=== PATIENT | female | born 1960 | race Caucasian/White ===

== ENCOUNTER 2016-02-28 09:32 | Emergency (ER) | payer BC ==
[2016-02-28 09:45] VITALS: BP 144/71
[2016-02-28] MEDS ORDERED: Albuterol/Ipratropium NEB.SOL* Albuterol 2.5 MG/Ipratropium 0.5 MG 3 ML INH ONE (09:55)
--- NOTE | 2016-02-28 10:27 | UC ---
Respiratory Complaint HPI - HPI Summary HPI Summary: 2 courses of antibiotics from 12/19/15 till now, has had progressive and worsening cough, unsure about fevers, nose and chest congestion, can here wheezing when she exhales - History of Current Complaint Chief Complaint: UCRespiratory Stated Complaint: COUGH Time Seen by Provider: 02/28/16 09:46 Hx Obtained From: Patient Hx Last Menstrual Period: cant remember, perhaps a couple months ago, "premenopause" ?: No Onset/Duration: Gradual Onset, Lasting Weeks, Still Present, Worse Since - getting worse every day---has only been ok when she was on prednisone Timing: Constant Severity Initially: Mild Severity Currently: Moderate Character: Cough: Productive Aggravating Factors: Exertion, Deep Breaths, Recumbent Position Alleviating Factors: Nothing - only when she was on prednisone she was feeling better Associated Signs And Symptoms: Positive: Chills, Pleuritic Chest Pain, Wheezing , URI, Nasal Congestion - Allergies/Home Medications Allergies/Adverse Reactions: Allergies Allergy/AdvReac Type Severity Reaction Status Date / Time No Known Allergies Allergy Verified 01/24/16 10:02 PMH/Surg Hx/FS Hx/Imm Hx Previously Healthy: No Endocrine History Of: Denies: Diabetes, Thyroid Disease Cardiovascular History Of: Reports: Hypertension Denies: Cardiac Disorders Respiratory History Of: Denies: COPD, Asthma GI/ History Of: Denies: Ulcer - Surgical History Surgical History: None - Family History Known Family History: Positive: Hypertension, Other - cancer - Social History 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 Lives: With Family Alcohol Use: None Substance Use Type: None Smoking Status (MU): Never Smoked Tobacco Have You Smoked in the Last Year: No - Immunization History Most Recent Influenza Vaccination: no Review of Systems Constitutional: Chills, Fatigue Skin: Negative Eyes: Negative ENT: Nasal Discharge Respiratory: Cough Cardiovascular: Negative Gastrointestinal: Negative Genitourinary: Negative Motor: Negative Neurovascular: Negative Musculoskeletal: Negative Neurological: Negative Psychological: Negative All Other Systems Reviewed And Are Negative: Yes Physical Exam Triage Information Reviewed: Yes Appearance: No Pain Distress, Ill-Appearing - mild, Obese Vital Signs: Initial Vital Signs Temp 98.8 F 02/28/16 09:39 Pulse 92 02/28/16 09:39 Resp 16 02/28/16 09:39 BP 144/71 02/28/16 09:39 Pulse Ox 98 01/08/17 09:39 Vital Signs Reviewed: Yes Eye Exam: Normal Eyes: Positive: Conjunctiva Clear ENT Exam: Normal ENT: Positive: Normal ENT inspection, Hearing grossly normal, Pharynx normal, Nasal congestion, Nasal drainage, TMs normal. Negative: Tonsillar swelling, Tonsillar exudate, Trismus, Muffled/hoarse voice Dental Exam: Normal Neck exam: Normal Neck: Positive: Supple, Nontender, No Lymphadenopathy Respiratory Exam: Normal Respiratory: Positive: Chest non-tender, No respiratory distress, No accessory muscle use, Wheezing, Expiration Cardiovascular Exam: Normal Cardiovascular: Positive: RRR, No Murmur, Pulses Normal, Brisk Capillary Refill Musculoskeletal Exam: Normal Musculoskeletal: Positive: Strength Intact, ROM Intact, No Edema Neurological Exam: Normal Neurological: Positive: Alert, Muscle Tone Normal Psychological Exam: Normal Skin Exam: Normal UC Diagnostic Evaluation - Laboratory O2 Sat by Pulse Oximetry: 98 Re-Evaluation - Re-Evaluation First Eval Change: Improved - after neb was able to cough up a large amount of thick yellow secretion, chest CTA and feels better Respiratory Course/Dx - Course Course Of Treatment: prednisone, albuterol neb, flonase, zithromax - Differential Dx/Diagnosis Differential Diagnosis/HQI/PQRI: Bronchitis, Laryngitis, Lower Resp Infection, Sinusitis, Tuberculosis Provider Diagnoses: Bronchitis , sinusitis, bronchospasm Discharge - Discharge Plan Condition: Stable Disposition: HOME Prescriptions: Albuterol 2.5MG/3ML (0.083%)* [Ventolin 2.5 MG/3 ML NEB.BELEN*] 2.5 mg INH Q6H PRN #1 box PRN Reason: cough/wheeze Azithromycin TAB* [Zithromax TAB (Z-ROXANNA)*] 0 mg PO .Z-ROXANNA INSTRUCTIONS #6 tab Fluticasone NASAL SPRAY 50MCG* [Flonase NASAL SPRAY 50MCG*] 2 spray BOTH NARES DAILY #1 btl predniSONE TAB* [Deltasone TAB*] 10 mg PO DAILY #20 tab Patient Education Materials: How to Use a Metered-Dose Inhaler (ED), Acute Bronchitis (ED), How to Use a Nebulizer (ED), Bronchospasm (ED), How to Use Nasal Brookesmith (ED) Referrals: Debby Chau NP [Primary Care Provider] - If Needed
== END 2016-02-28 10:42 | disposition home or self-care (01) ==
LOC: UCEAST 09:32
DX: J40 Bronchitis, not specified as acute or chronic (principal); J01.90 Acute sinusitis, unspecified
CPT/HCPCS: 99212; A9270-GY; G0463

== ENCOUNTER 2016-03-13 07:14 | Emergency (ER) | payer BC ==
[2016-03-13 07:26] VITALS: BP 151/78
--- NOTE | 2016-03-13 07:49 | UC ---
Respiratory Complaint HPI - HPI Summary HPI Summary: RLL PNA DIAGNOSED 12/18 IN ER - TREATED WITH LEVAQUIN. A MONTH LATER SX RETURNED - SEEN BY PCP AND TREATED WITH AMOXICILLIN. HAS ALSO RECEIVED INHALERS , COUGH MEDICINE AND STEROIDS FOR RESPIRATORY SX IN PAST 2 MONTHS SINCE INITIAL DIAGNOSIS. LAST VISIT HERE WAS 02/28/16 AND PT WAS DX WITH BRONCHITIS/SINUSITIS AND TX WITH AZITH. SHE JUST STARTED TAKING THIS YESTERDAY. PT REPORTS OVER THE PAST 2 DAYS HER RIGHT EAR HAS BECOME PLUGGED AND HER HEARING IS MUFFLED. SHE ALSO STATES THE COUGH HAS BEEN PERSISTENT AND IS NO BETTER. IS WONDERING ABOUT A PULMONOLOGY EVALUATION. DENIES FEVER, N/V/D. NO ST OR RECENT WHEEZE. 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 - Hx Last Menstrual Period: cant remember, perhaps a couple months ago, "premenopause" Onset/Duration: Gradual Onset, Lasting Weeks, Still Present Timing: Constant Severity Initially: Moderate Severity Currently: Moderate Pain Intensity: 0 Pain Scale Used: 0-10 Numeric Character: Cough: Productive Aggravating Factors: Nothing Alleviating Factors: Nothing - Allergies/Home Medications Allergies/Adverse Reactions: Allergies Allergy/AdvReac Type Severity Reaction Status Date / Time No Known Allergies Allergy Verified 03/13/16 07:15 PMH/Surg Hx/FS Hx/Imm Hx Endocrine History Of: Denies: Diabetes, Thyroid Disease Cardiovascular History Of: Reports: Hypertension Denies: Cardiac Disorders Respiratory History Of: Reports: Asthma Denies: COPD GI/ History Of: Denies: Ulcer - Surgical History Surgical History: None - Family History Known Family History: Positive: Hypertension, Other - cancer - Social History Alcohol Use: None Substance Use Type: None Smoking Status (MU): Never Smoked Tobacco Have You Smoked in the Last Year: No - Immunization History Most Recent Influenza Vaccination: no Review of Systems ENT: Ear Ache Respiratory: Cough Cardiovascular: Negative Gastrointestinal: Negative All Other Systems Reviewed And Are Negative: Yes Physical Exam Triage Information Reviewed: Yes Appearance: Well-Appearing, No Pain Distress, Well-Nourished Vital Signs: Initial Vital Signs Temp 98.7 F 03/13/16 07:14 Pulse 90 03/13/16 07:14 Resp 16 03/13/16 07:14 BP 151/78 03/13/16 07:14 Pulse Ox 95 03/13/16 07:14 Vital Signs Reviewed: Yes Eyes: Positive: Conjunctiva Clear ENT: Positive: Hearing grossly normal, Pharynx normal, TMs normal Neck: Positive: Supple, Nontender, No Lymphadenopathy Respiratory Exam: Normal Cardiovascular Exam: Normal Abdomen Description: Positive: Soft Musculoskeletal: Positive: No Edema Neurological: Positive: Alert Psychological: Positive: Age Appropriate Behavior Skin: Negative: rashes UC Diagnostic Evaluation - Laboratory O2 Sat by Pulse Oximetry: 95 Respiratory Course/Dx - Course Course Of Treatment: ADVISED TO CONTINUE AZITH TO COMPLETE COURSE. PT DECLINES FURTHER TREATMENT WITH STEROIDS. HAS INHALERS AT HOME. PT ASKED ABOUT SINGULAIR. I ADVISED THAT THIS WOULD BE BETTER PRESCRIBED BY HER PCP OR A FINGERPRINT EXPERT IT IS MEDICATION TO BE TAKEN CHRONICALLY AND WOULD NEED FOLLOW- UP AFTER INITIATING. - Differential Dx/Diagnosis Provider Diagnoses: 1. EUSTACHIAN TUBE DYSFUNCTION. 2. CHRONIC COUGH Discharge - Discharge Plan Condition: Stable Disposition: HOME Patient Education Materials: Chronic Cough (ED), Eustachian Tube Dysfunction ( GEN) Referrals: Debby Chau NP [Primary Care Provider] - If Needed Additional Instructions: CONTINUE THE AZITHROMYCIN TO COMPLETE COURSE. USE YOUR INHALERS NEEDED. GO AHEAD AND CALL PULMONOLOGY AT [facility] TOMORROW MORNING FOR AN APPT TO BE SEEN. GO TO THE ER WITHOUT FAIL IF YOU DEVELOP CHEST PAIN, SHORTNESS OF BREATH OF ANY OTHER CONCERNING SYMPTOMS.
== END 2016-03-13 08:02 | disposition home or self-care (01) ==
LOC: UCEAST 07:14
DX: H69.91 Unspecified Eustachian tube disorder, right ear (principal); R05 Cough
CPT/HCPCS: 99211; G0463

== ENCOUNTER 2016-07-17 21:20 | Emergency (ER) | payer BC ==
[2016-07-17] MEDS ORDERED: Ciprofloxacin 0.3% OPTH.SOL* 2.5 ML BTL LEFT EYE ONE (22:52)
--- NOTE | 2016-07-17 22:52 | UC ---
Respiratory Complaint HPI - HPI Summary HPI Summary: 1 WEEK OF COUGH. NO FEVER, ST, EAR PAIN, N/V/D OR CONGESTION. LEFT EYE STARTED TO GET RED TODAY. NO VISUAL DISTURBANCES. - History of Current Complaint Chief Complaint: UCRespiratory Stated Complaint: COUGH Time Seen by Provider: 07/17/16 22:43 Hx Obtained From: Patient Hx Last Menstrual Period: cant remember, perhaps a couple months ago, "premenopause" Onset/Duration: Gradual Onset, Lasting Days, Still Present Timing: Constant Severity Initially: Moderate Severity Currently: Moderate Pain Intensity: 0 Pain Scale Used: 0-10 Numeric Character: Cough: Nonproductive Aggravating Factors: Nothing Alleviating Factors: Nothing Associated Signs And Symptoms: Positive: URI - Allergies/Home Medications Allergies/Adverse Reactions: Allergies Allergy/AdvReac Type Severity Reaction Status Date / Time Cinnamon Allergy Severe Rash Verified 07/17/16 21:51 MINT Allergy Severe Rash Uncoded 07/17/16 21:51 PMH/Surg Hx/FS Hx/Imm Hx Endocrine History Of: Denies: Diabetes, Thyroid Disease Cardiovascular History Of: Reports: Hypertension Denies: Cardiac Disorders Respiratory History Of: Reports: Asthma Denies: COPD GI/ History Of: Denies: Ulcer - Surgical History Surgical History: None - Family History Known Family History: Positive: Hypertension, Other - cancer - Social History Alcohol Use: None Substance Use Type: None Smoking Status (MU): Never Smoked Tobacco Have You Smoked in the Last Year: No - Immunization History Most Recent Influenza Vaccination: no Review of Systems Constitutional: Negative Eyes: Eye Redness ENT: Negative Respiratory: Cough Cardiovascular: Negative Gastrointestinal: Negative All Other Systems Reviewed And Are Negative: Yes Physical Exam Triage Information Reviewed: Yes Appearance: Well-Appearing, No Pain Distress, Well-Nourished Vital Signs: Initial Vital Signs Temp 96.6 F 07/17/16 21:44 Pulse 79 07/17/16 21:44 Resp 18 07/17/16 21:44 BP 148/88 07/17/16 21:44 Pulse Ox 96 07/17/16 21:44 Vital Signs Reviewed: Yes Eyes: Positive: Conjunctiva Inflamed - LEFT. Negative: Discharge ENT: Positive: Hearing grossly normal, Pharynx normal, TMs normal Neck: Positive: Supple, Nontender, No Lymphadenopathy Respiratory Exam: Normal Cardiovascular Exam: Normal Abdomen Description: Positive: Soft Musculoskeletal: Positive: No Edema Neurological: Positive: Alert Psychological: Positive: Age Appropriate Behavior Skin: Negative: rashes UC Diagnostic Evaluation - Laboratory O2 Sat by Pulse Oximetry: 96 Respiratory Course/Dx - Differential Dx/Diagnosis Provider Diagnoses: 1. ACUTE URI. 2. LEFT EYE CONJUNCTIVITIS Discharge - Discharge Plan Condition: Stable Disposition: HOME Patient Education Materials: Upper Respiratory Infection (ED), Conjunctivitis ( ED) Referrals: Debby Chau NP [Primary Care Provider] - If Needed Additional Instructions: ACUTE UPPER RESPIRATORY INFECTION The common cold is a benign self-limited syndrome representing a group of diseases caused by members of several families of viruses. It is the most frequent acute illness in the [place] and throughout the industrialized world. The term "common cold" refers to a mild upper respiratory viral infection involving, to variable degrees, nasal congestion and discharge ( rhinorrhea), sneezing, sore throat, cough, low-grade fever, headache, and malaise. Symptomatic therapy remains the mainstay of common cold treatment. In the absence of convincing evidence of a secondary bacterial infection, antibiotics are not effective in the treatment of the common cold and should not be prescribed. Be advised that the usual course and duration of illness is up to one and a half weeks for patients with a cold, but can last slightly longer; symptoms usually persist longer in smokers. CIPRO EYE DROPS DISPENSED FOR PINK EYE. USE UNTIL SYMPTOMS ARE RESOLVED AND THEN FOR AN EXTRA 2 DAYS AFTER THAT.
[2016-07-18 10:01] VITALS: BP 148/88
== END 2016-07-17 23:10 | disposition home or self-care (01) ==
LOC: UCEAST 21:20
DX: J06.9 Acute upper respiratory infection, unspecified (principal); H10.32 Unspecified acute conjunctivitis, left eye; I10 Essential (primary) hypertension; J45.909 Unspecified asthma, uncomplicated
CPT/HCPCS: 99212; A9270-GY; G0463

== ENCOUNTER 2017-12-17 07:02 | Emergency (ER) | payer BC ==
[2017-12-17 07:15] VITALS: BP 141/75
--- NOTE | 2017-12-17 07:31 | UC ---
Respiratory Complaint HPI - HPI Summary HPI Summary: 57yo female with PMH of asthma and HTN c/o sore throat, cough and yellow sputum for 1 week - History of Current Complaint Chief Complaint: UCRespiratory Stated Complaint: COUGH SORE THROAT CONGESTED Time Seen by Provider: 12/17/17 07:11 Hx Obtained From: Patient Hx Last Menstrual Period: cant remember, perhaps a couple months ago, "premenopause" ?: No Onset/Duration: Gradual Onset, Lasting Weeks Severity Initially: Mild Severity Currently: Mild Pain Intensity: 2 Character: Cough: Productive Aggravating Factors: Exertion Alleviating Factors: Bronchodilator Associated Signs And Symptoms: Positive: Fever - Risk Factors Pulmonary Embolism Risk Factors: Negative Cardiac Risk Factors: Negative Pseudomonas Risk Factors: Negative Tuberculosis Risk Factors: Negative - Allergies/Home Medications Allergies/Adverse Reactions: Allergies Allergy/AdvReac Type Severity Reaction Status Date / Time cinnamon Allergy Rash Verified 12/17/17 07:16 MINT Allergy Severe Rash Uncoded 12/17/17 07:16 PMH/Surg Hx/FS Hx/Imm Hx Cardiovascular History: Hypertension Respiratory History: Asthma - Surgical History Surgical History: None - Family History Known Family History: Positive: Hypertension, Other - cancer - Social History Alcohol Use: Rare Substance Use Type: None Smoking Status (MU): Never Smoked Tobacco Have You Smoked in the Last Year: No - Immunization History Most Recent Influenza Vaccination: no Review of Systems Constitutional: Fever Respiratory: Cough All Other Systems Reviewed And Are Negative: Yes Physical Exam - Summary Physical Exam Summary: ronci b/l , no wheezing, pharynx wnl, no erythema or exudates, no cervical LNE Triage Information Reviewed: Yes Appearance: Well-Appearing, No Pain Distress, Obese Vital Signs: Initial Vital Signs Temp 98.3 F 12/17/17 07:10 Pulse 100 12/17/17 07:10 Resp 16 12/17/17 07:10 BP 141/75 12/17/17 07:10 Pulse Ox 95 12/17/17 07:10 Vital Signs Reviewed: Yes Eyes: Positive: Conjunctiva Clear ENT: Positive: Normal ENT inspection, Hearing grossly normal, Pharynx normal, TMs normal Neck: Positive: Supple, Nontender, No Lymphadenopathy Respiratory: Positive: Rhonchi Cardiovascular: Positive: RRR, No Murmur, Pulses Normal Abdomen Description: Positive: Nontender Bowel Sounds: Positive: Present Musculoskeletal: Positive: Strength Intact, ROM Intact, No Edema UC Diagnostic Evaluation - Laboratory O2 Sat by Pulse Oximetry: 95 Respiratory Course/Dx - Course Course Of Treatment: patient with cough for 7 days, feels she is a little better than at beginning of her illness, instructed to rest, tylenol as needed, standby amoxil as prescribed if symptoms worsen. - Differential Dx/Diagnosis Provider Diagnoses: acute bronchitis Discharge - Sign-Out/Discharge Documenting (check all that apply): Patient Departure All imaging exams completed and their final reports reviewed: No Studies - Discharge Plan Condition: Stable Disposition: HOME Patient Education Materials: Viral Syndrome (ED), Acute Bronchitis (ED) Referrals: Debby Chau NP [Primary Care Provider] - - Billing Disposition and Condition Condition: STABLE Disposition: Home
== END 2017-12-17 07:42 | disposition home or self-care (01) ==
LOC: UCEAST 07:02
DX: J20.9 Acute bronchitis, unspecified (principal); J02.9 Acute pharyngitis, unspecified; I10 Essential (primary) hypertension; J45.909 Unspecified asthma, uncomplicated; Z91.018 Allergy to other foods
CPT/HCPCS: 99212; G0463

== ENCOUNTER 2018-06-30 07:01 | Emergency (ER) | payer BC ==
[2018-06-30 07:14] VITALS: BP 128/68
--- NOTE | 2018-06-30 07:15 | UC ---
Respiratory Complaint HPI - HPI Summary HPI Summary: CHIEF COMPLAINT and HPI: This is a 58 y/o healthy female with cough, congestion , no fever . This condition began 5 days ago. Since then continued at same level. No chest pain or SOB. VITAL SIGNS & SaO2 REVIEWED. Within normal limits unless noted here. Pulse Ox: 97. NURSES NOTE REVIEWED. "Pt with a cough, starting monday. pt is losing her voice. PT with hx of high blood pressure, and took a cough medicine for high blood pressure, and it did help. Pt with some mild sinus drainage. afebrile." - History of Current Complaint Stated Complaint: COUGH Time Seen by Provider: 06/30/18 07:12 Hx Last Menstrual Period: cant remember, perhaps a couple months ago, "premenopause" - Allergies/Home Medications Allergies/Adverse Reactions: Allergies Allergy/AdvReac Type Severity Reaction Status Date / Time cinnamon Allergy Rash Verified 06/30/18 07:14 MINT Allergy Severe Rash Uncoded 06/30/18 07:14 Home Medications: Home Medications Dm/Acetaminophen/Doxylamine [Coricidin Hbp Cold-Multi Sympt] 1 tab PO ONCE PRN 06/30/18 [History Confirmed 06/30/18] PMH/Surg Hx/FS Hx/Imm Hx - Additional Past Medical History Additional PMH: PAST MEDICAL HISTORY- hypertension, asthma; kidney stone CHRONIC and RECURRENT HEALTH PROBLEM LIST REVIEWED. Information relevant to present complaint: VISIT HISTORY REVIEWED: pneumonia 2016 MEDICATIONS & ALLERGIES REVIEWED. HYPERTENSION STATUS: lisinopril FAMILY HISTORY: Positive for: hypertension,cancer. 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 - Surgical History Surgical History: None - Family History Known Family History: Positive: Hypertension, Other - cancer - Social History Alcohol Use: Rare Substance Use Type: None Smoking Status (MU): Never Smoked Tobacco Have You Smoked in the Last Year: No - Immunization History Most Recent Influenza Vaccination: no Review of Systems All Other Systems Reviewed And Are Negative: Yes Constitutional: Positive: Negative. Negative: Fever Respiratory: Positive: Negative, Cough - keeps her up at night; nonproductive; no chest pain or SOB.. Negative: Shortness Of Breath Cardiovascular: Positive: Negative. Negative: Palpitations Gastrointestinal: Positive: Negative. Negative: Abdominal Pain Is Patient Immunocompromised?: No Physical Exam - Summary Physical Exam Summary: Appearance: The patient is well-appearing, is in no pain or distress, and is well-nourished. Eyes: Conjunctiva are clear. Pupils are equal and reactive to light and accommodation. Extra ocular muscle movement is intact. ENT: The hearing is grossly normal, the pharynx is normal, and the TMs are normal. There is no muffled or hoarse voice. No stridor. Neck: The neck is supple and there is no lymphadenopathy. Respiratory: The chest is non-tender to palpation and without crepitus. The lungs are clear, there are normal breath sounds, and there is no respiratory distress. No wheezes, rales or rhonchi. Cardiovascular: Heart sounds reveal a regular rate and rhythm. There are no clicks, rubs or murmurs. There are no carotid bruits or thrills. Circulation is grossly intact. Abdomen: The abdomen is soft and nontender. There is no organomegaly. Bowel sounds are present and within normal limits. No point tenderness at McBurneys point. No CVA tenderness. Musculoskeletal: Strength is intact. The patient moves all extremities. Neurological: The patient is alert. Motor and sensory are examination grossly intact. Speech is normal. Psychological: The patient displays age appropriate behavior, and is conversant. GCS=15. Skin: Negative for rashes. Triage Information Reviewed: Yes Vital Signs Reviewed: Yes Respiratory Course/Dx - Course Course Of Treatment: MEDICAL DECISION MAKING and PLAN: This is a 58 y/o healthy female with cough, congestion, no fever . This condition began 5 days ago. Since then continued at same level. No chest pain or SOB. Physical examination is unremarkable. Her lungs are clear. She looks otherwise healthy. Her main complaint is her cough that is keeping her up at night. In her Tessalon pearls and my diagnosis is upper respiratory infection, viral. MEDICATIONS REVIEWED. HYPERTENSION STATUS REVIEWED WITH PATIENT. Patient is urgent/emergent causing transient blood pressure elevation. Patient is being treated for hypertension. - Differential Dx/Diagnosis Differential Diagnosis/HQI/PQRI: Asthma, Bronchitis, Lower Resp Infection Provider Diagnosis: Upper respiratory infection Discharge - Sign-Out/Discharge Documenting (check all that apply): Patient Departure All imaging exams completed and their final reports reviewed: No Studies - Discharge Plan Condition: Stable Disposition: HOME Prescriptions: Benzonatate CAP* [Tessalon CAP*] 100 mg PO TID #20 cap MDD 3 Patient Education Materials: Upper Respiratory Infection (DC) Referrals: Debby Chau NP [Primary Care Provider] - Additional Instructions: WE DISCUSSED: PLEASE SEEK CARE AT THE EMERGENCY DEPARTMENT IF SYMPTOMS WORSEN OR IF NEW SYMPTOMS DEVELOP. FOLLOW UP WITH YOUR PRIMARY CARE PHYSICIAN IF CONDITION CONTINUES BEYOND 3 DAYS WITHOUT IMPROVEMENT. YOUR DIAGNOSIS IS: upper respiratory infection YOUR PRESCRIPTION RECOMMENDATION IS: Tessalon pearls. OTHER INSTRUCTIONS: Hypertension Discharge Instructions: Your blood pressure reading today was 128/68., indicating HYPERTENSION. Follow- up with your primary care provider within 4 weeks for blood pressure check and appropriate recommendations and treatment, as needed. FOR PAIN AND/OR SLEEP: For pain: Ibuprofen (Motrin and other brand names) 400-600mg PLUS acetaminophen (Tylenol and other brand names) 500mg - 1000mg every 8 hours. COUGH, CONGESTION of CHEST, SINUSES OR EARS or SORE THROAT: USEFUL WAYS TO FEEL BETTER WITHOUT MEDICATIONS The most important goal is to liquefy all the phlegm and get it out of your head and chest. For sore throat, it is important to keep throat moist and protected. Any illness causing cough, congestion, sore throat or sinus discomfort can be helped by doing the following: FOR HEAD, SINUSES and CHEST: STAND UNDER SHOWER STREAM TO LOOSEN SECRETIONS. USE A VAPORIZOR. STAY AWAY FROM ANY SMOKE OR IRRITANTS. USE SALINE NASAL SPRAY TO KEEP FLOW OF MUCOUS FROM NOSTRILS AND SINUSES. CONSIDER USING NETI POT TO HELP WITH ALLERGIES AND CONGESTION IN THE NOSE. USE THIS THREE TIMES A WEEK. YOU CAN GET THIS AT [facility] IN [place] OR VARIOUS DRUGSTORES. FOR SORE THROAT: DRINK LOTS OF WARM FLUIDS WARM WATER GARGLES, WITH TSP OF SALT PER 8 OUNCES OF WATER, GARGLE FOR A FEW SECONDS AND SPIT OUT; GARGLE AND SPIT OUT, EVERY THREE HOURS. AND/OR: WARM WATER OR TEA, HONEY AND LEMON; 2-3 CUPS A DAY. KEEP THROAT MOIST and PROTECTED WITH LOZENGES. USE VAPORIZOR. DONT LET THROAT DRY OUT. GENERAL TYPES OF OVER THE COUNTER MEDICINE THAT MAY HELP WITH COUGH, SINUS CONGESTION OR SORE THROAT: Make sure to check with your pharmacist if you are taking other prescription medication prior to taking any of the medications listed here. DECONGESTANTS: helps relieve stuffiness and clears sinuses. Pseudoephedrine ( Sudafed or generic) is effective but you need to ask the pharmacist for it because it may be kept behind the counter. Don't take if you have high blood pressure. ANTIHISTAMINES: are NOT helpful in many colds and flus because they can worsen sore throat, dry eyes and mouth and cause drowsiness. Examples are diphenhydramine, doxylamine and chlorpheniramine. They can help dry you out if you are having profuse, clear drainage from the nose. EXPECTORANTS: helps thin mucous in the nose and chest, making it easier to clear the fluid out. Expectorants are in most combination cough/cold remedies and should be taken with plenty of water. Guaifenesin is the most common expectorant and it comes in pill or liquid form. Mucinex is an extended release form of guaifenesin. COUGH SUPPRESANT: reduces the body's cough reflex. Dextromethorphan is in over the counter products, but sometimes narcotics such as codeine or hydrocodone are used to suppress cough. SPECIFIC MEDICATIONS: The following medicines may help: To help with cough: DEXTROMETHORPHAN (Vicks, Robitussin, Nyquil and other brands) To help break up phlegm: GUAIFENESIN (Mucinex, Robitussin, other brands) To help clear congestion in the nose and sinuses: PSEUDOEPHEDRINE (Sudafed, Dimetapp, other brands) To help clear nasal congestion: AFRIN NASAL SPRAY: 2-3 SPRAYS PER NOSTRIL, TWICE A DAY FOR TWO DAYS ONLY. FLONASE: (or other steroid nasal sprays) can help if your running nose is caused by an allergy. It can help relieve congestion. It is used once a day in each nostril. Check the dose with your pharmacist. FOLLOW UP for RESPIRATORY, SINUS OR THROAT ILLNESS: RE-CHECK IN 1O DAYS, NEEDED, IF YOU ARE NOT IMPROVING. RETURN HERE OR SEE YOUR PHYSICIAN. RE-CHECK SOONER IF INCREASED PAIN OR TEMPERATURE WITH COUGH, SINUS PAIN OR SORE THROAT. - Billing Disposition and Condition Condition: STABLE Disposition: Home
[2018-06-30] MEDS ORDERED: Benzonatate CAP* 100 MG PO ONE (07:31)
== END 2018-06-30 07:43 | disposition home or self-care (01) ==
LOC: UCEAST 07:01
DX: J06.9 Acute upper respiratory infection, unspecified (principal); I10 Essential (primary) hypertension; J45.909 Unspecified asthma, uncomplicated; Z87.442 Personal history of urinary calculi; Z82.49 Family history of ischemic heart disease and other diseases of the circulatory system; Z80.9 Family history of malignant neoplasm, unspecified
CPT/HCPCS: 99212; A9270-GY; G0463

== ENCOUNTER 2018-07-01 07:05 | Emergency (ER) | payer BC ==
--- NOTE | 2018-07-01 07:12 | UC ---
Throat Pain/Nasal Bartolo HPI - HPI Summary HPI Summary: Patient's a 58-year-old female with a history of hypertension. Patient presented to urgent care with her . Patient states for 7 days she's had progressive cough productive of yellow sputum that is now slightly green. Patient does have a sample in the room for my inspection. Patient denies any blood. Patient states she's also has some sinus congestion that seems to have gotten worse. Pt reports PND. Patient states last night she developed some right ear pain and some drainage from the right ear. No fevers or chills. No nausea or vomiting. No rash. Patient has been taking Coricidin was given Tessalon Perles yesterday. Patient was evaluated here for the cough but diagnosed with viral and recommend supportive care. Patient states she's got no appetite and feels she is getting worse. 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 Patient's medications reviewed this visit. - History of Current Complaint Stated Complaint: COUGH AND EAR PAIN Hx Obtained From: Patient, Medical Records Hx Last Menstrual Period: cant remember, perhaps a couple months ago, "premenopause" ?: No Onset/Duration: Gradual Onset Severity: Moderate Pain Scale Used: 0-10 Numeric Cough: Productive - yellow - Allergies/Home Medications Allergies/Adverse Reactions: Allergies Allergy/AdvReac Type Severity Reaction Status Date / Time cinnamon Allergy Rash Verified 07/01/18 07:17 MINT Allergy Severe Rash Uncoded 07/01/18 07:17 PMH/Surg Hx/FS Hx/Imm Hx Previously Healthy: Yes Cardiovascular History: Hypertension - Surgical History Surgical History: None - Family History Known Family History: Positive: Hypertension, Other - cancer - Social History Occupation: Employed Part-time Lives: With Family Alcohol Use: Rare Substance Use Type: None Smoking Status (MU): Never Smoked Tobacco Have You Smoked in the Last Year: No - Immunization History Most Recent Influenza Vaccination: no Review of Systems All Other Systems Reviewed And Are Negative: Yes Constitutional: Positive: Fatigue Eyes: Positive: Negative ENT: Positive: Ear Ache, Nasal Discharge, Sinus Congestion, Other - right ear drainage Respiratory: Positive: Cough. Negative: Shortness Of Breath Cardiovascular: Positive: Negative Gastrointestinal: Positive: Negative Genitourinary: Positive: Negative Is Patient Immunocompromised?: No Physical Exam - Summary Physical Exam Summary: Vital Signs Reviewed: Yes A+Ox3, congested Eyes: Conjunctiva Clear, DEEPAK. EOM intact and full ENT: Hearing grossly normal right TM ++ fluid, + erythema Pt with erythema and mild edema of canal, dry yellow drainage in canal - no obvious perforation to TM, turbinates inflammed and boggy, + PND, mmoist, uvula midline, no exudate , no erythema Neck: Positive: Supple Respiratory: Positive: No respiratory distress, No accessory muscle use + CTA throughout no w/r, mild intermittent cough Cardiovascular: RRR nl s1, s2 no m/r CBT <2 sec abd soft + BS nt/nd no guarding, no distension Musculoskeletal Exam: FUENTES x 4 without difficulty Strength Intact, ROM Intact Neurological: Positive: Alert, + sensation throughout Psychological: Positive: Normal Response To Family Skin: Positive: no rash, no ecchymosis Triage Information Reviewed: Yes Throat Pain/Nasal Course/Dx - Course Course Of Treatment: Pt presents to with 8 days progressive cough, sputum now greening (sample in room) , sinus congestion. Pt now with right ear pain and drainage since last night. Pt was eval here yesterday for cough - give tessalon pearls and tx for viral sx. Pt states ear was not bothering her yesterday On exam VSS pt with fluid and erythema right TM with drainage and edema of canal turbiantes inflammed and boggy Will Rx topical and oral abx flonase secretion precaution humidified air fluid return precautions PT states does get vaginal yeast infection from abx - will Rx diflucan prn r comfortabld and in agreement with plan - Differential Dx/Diagnosis Provider Diagnosis: Otitis externa, Ear infection, Rhinosinusitis Discharge - Sign-Out/Discharge Documenting (check all that apply): Patient Departure All imaging exams completed and their final reports reviewed: No Studies - Discharge Plan Condition: Stable Disposition: HOME Prescriptions: Amoxicillin PO (*) [Amoxicillin 875 MG (*)] 875 mg PO BID #20 tab Ciproflox/Dexameth OTIC.SUSP* [Ciprodex OTIC.SUSP*] 2 drop .SEE ORDER TID #1 btl Fluconazole [Diflucan 150 MG (NF)] 150 mg PO ONCE PRN #1 tab PRN Reason: vaginal yeast infection Fluticasone NASAL SPRAY 50MCG* [Flonase NASAL SPRAY 50MCG*] 2 spray BOTH NARES DAILY #1 btl Patient Education Materials: Otitis Externa (ED), Ear Infection (ED), Rhinosinusitis (ED) Referrals: Debby Chau NP [Primary Care Provider] - Additional Instructions: - Stay well hydrated. Drink plenty of non-alcoholic, non-caffinated beverages. - Alternate ibuprofen (Advil, Motrin) 600mg and Tylenol every 3 hours for pain or fever. Take with food. Do NOT take for more than 4-5 days. - These infections are spread by secretions - do NOT share eating or drinking utensils - clean items you share with other people such as cell phones, computer mouse, TV remote, computer tablets,etc. Once you have been antibiotics for 2 days, change your toothbrush and your pillowcase. - get plenty of restful sleep - Apply drops to right ear as prescribed - humidify the air in the room where you sleep - boil water, run a hot steam shower, vaporizer, cups of water by heat register - use nasal spray as prescribed - you have been given the 1 time treatment for vaginal yeast infection. Okay to take this is you develop a yeast infection from the antibiotics - contact your doctor or return with questions or concerns - Billing Disposition and Condition Condition: STABLE Disposition: Home
[2018-07-01 07:17] VITALS: BP 128/88
== END 2018-07-01 07:43 | disposition home or self-care (01) ==
LOC: UCEAST 07:05
DX: H60.91 Unspecified otitis externa, right ear (principal); H66.91 Otitis media, unspecified, right ear; J32.9 Chronic sinusitis, unspecified; I10 Essential (primary) hypertension
CPT/HCPCS: 99212; G0463